=== PATIENT | male | born 1970 | race Caucasian/White ===

== ENCOUNTER 2017-11-04 22:26 | Emergency (ER) | payer SELFPAY ==
[~2017-11-04] VITALS: Ht 177.8 cm; Wt 92.7 kg
[2017-11-04] MEDS ORDERED: ONDANSETRON HCL 4 MG/2 ML VIAL IM ONE (23:00)
[2017-11-04] MEDS ORDERED: MORPHINE SULFATE 4 MG/ML SYRINGE IM ONE (23:00)
[2017-11-05] MEDS ORDERED: FentaNYL CITRATE-PF 100 MCG/2 ML VIAL IVP ONE
[2017-11-05] MEDS ORDERED: MIDAZOLAM HCL 5 MG/ML VIAL IVP ONE
[2017-11-05 02:47] VITALS: BP 122/67
== END 2017-11-05 03:05 | disposition home or self-care (01) ==
LOC: EMS 22:26
DX: S52.572A Other intraarticular fracture of lower end of left radius, initial encounter for closed fracture (principal); V00.311A Fall from snowboard, initial encounter; Y93.23 Activity, snow (alpine) (downhill) skiing, snowboarding, sledding, tobogganing and snow tubing; Y92.89 Other specified places as the place of occurrence of the external cause; Y99.8 Other external cause status
CPT/HCPCS: 25605; 73090; 73110 ×2; 96372; 96374; 99152; 99285; J2250; J2270; J2405; J3010